=== PATIENT | male | born 1975 | race Caucasian/White ===

== ENCOUNTER 2018-06-24 14:44 | Emergency (ER) | payer MEDICAID ==
[~2018-06-24] VITALS: Ht 165.1 cm; Wt 96.8 kg
[~2018-06-24 14:44] MED LIST: FLUT16SP10
[2018-06-24 14:56] VITALS: BP 134/84
[2018-06-24] MEDS ORDERED: HYDROcodone/acetaminophen 10/325mg tab PO STA (15:01)
[2018-06-24] MEDS ORDERED: HYDR-4353 PO (15:41)
== END 2018-06-24 16:49 | disposition home or self-care (01) ==
LOC: ER 14:45
DX: S82.831A Other fracture of upper and lower end of right fibula, initial encounter for closed fracture (principal); F17.210 Nicotine dependence, cigarettes, uncomplicated; Z98.890 Other specified postprocedural states; Z79.899 Other long term (current) drug therapy; X50.1XXA Overexertion from prolonged static or awkward postures, initial encounter; Y93.01 Activity, walking, marching and hiking; Y92.89 Other specified places as the place of occurrence of the external cause; Y99.8 Other external cause status
CPT/HCPCS: 29515; 73610; 73630; 99284